=== PATIENT | male | born 2000 | race Two or more races ===

== ENCOUNTER 2019-04-10 09:26 | Emergency (ER) | payer SELFPAY ==
--- NOTE | 2019-04-10 10:28 | NUR ---
PROGRAM MANAGEMENT MANAGER: PT LEFT WITHOUT BEING SEEN
== END 2019-04-10 10:30 | disposition left against medical advice (07) ==
LOC: ED 10:19
DX: R05 Cough (principal); Z53.21 Procedure and treatment not carried out due to patient leaving prior to being seen by health care provider